=== PATIENT | male | born 1955 | race Caucasian/White ===

== ENCOUNTER 2018-07-24 13:20 | Emergency (ER) | payer MEDICAID ==
[~2018-07-24] VITALS: Ht 182.9 cm; Wt 72.6 kg
--- NOTE | 2018-07-24 13:30 | NUR ---
patient brought to room on [facility] accompanied by 2 process coordinator. Per EMT: patient pulled out his suprapubic cath this morning at around 0700. But cath is still inside. EMT said she didn't undersntand what "pulled out his cath" meant since his cath is still in place. Per EMT patient alert and oriented to self only. Fall risk.
--- NOTE | 2018-07-24 13:56 | NUR ---
Cath connector was the problem and it has been changed now.
--- NOTE | 2018-07-24 13:57 | NUR ---
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
--- NOTE | 2018-07-24 14:00 | NUR ---
Called REGINALDO Eckert at [facility] to give her update on patient.
--- NOTE | 2018-07-24 14:46 | NUR ---
Patient pulled his catheter out Dr Thomas inserted new catheter. Patient picked up by ambulance on [place], accompanied by 2 spray dry operator. No IV inseted this visit. Patient given after care printed material, needs reinforcent of education.
[2018-07-24 14:47] VITALS: BP 131/75
== END 2018-07-24 14:52 | disposition home or self-care (01) ==
LOC: ER 13:20
DX: T83.011A Breakdown (mechanical) of indwelling urethral catheter, initial encounter (principal); I10 Essential (primary) hypertension; E78.5 Hyperlipidemia, unspecified; Z88.5 Allergy status to narcotic agent; Z88.8 Allergy status to other drugs, medicaments and biological substances
CPT/HCPCS: 51702; 99284; A4663